=== PATIENT | male | born 1975 | race Caucasian/White ===

== ENCOUNTER 2020-12-04 01:16 | Emergency (ER) | payer OTHER ==
[2020-12-04 01:37] VITALS: TEMP 98.5; BMI 41.8
[2020-12-04] MEDS ORDERED: SODIUM CHLORIDE FOR INHALATION 3 ML VIAL.NEB IH ONE (04:56)
[2020-12-04] MEDS: ALBUTEROL SO4 2.5/IPRATROPIUM 0.5 INH SOL 3 ML VIAL.NEB. NEB SCH ×3 (05:10→05:28)
[2020-12-04 05:56] VITALS: BP 140/79; PULSE 76
== END 2020-12-04 05:52 | disposition home or self-care (01) ==
LOC: JER 01:16
PROC: 3E0F7GC Introduction of Other Therapeutic Substance into Respiratory Tract, Via Natural or Artificial Opening (ICD-10-PCS; principal; 2020-12-04)
DX: T59.891A Toxic effect of other specified gases, fumes and vapors, accidental (unintentional), initial encounter (principal)
CPT/HCPCS: 71046-TC-FY; 93005; 93010; 99284-25

== ENCOUNTER 2021-04-30 18:39 | Observation (INO) | payer OTHER ==
[2021-04-30 20:24] LABS: BASO % 0.5 % (0-2.0); EOS % 0.7 % (0-4.5); HEMATOCRIT 38.5 % (35.4-49); LYMPH % 21.2 % (8-40); MCH 30.5 pg (25.7-33.7); MCHC 33.8 g/dl (32.0-35.9); MEAN CELL VOLUME 90.2 fl (80-96); MEAN PLT VOLUME 7.6 fl (7.5-11.1); MONO % 7.6 % (3.8-10.2); PLATELET COUNT 230 10^3/uL (134-434); RBC 4.27 M/mm3 (4.00-5.60); RDW 13.6 % (11.9-15.9); WHITE BLOOD COUNT 7.8 K/mm3 (4.0-10.0)
[2021-04-30 20:42] LABS: ALBUMIN 3.6 g/dl (3.4-5.0); CALCIUM 9.3 mg/dL (8.5-10.1)
[2021-04-30 20:43] LABS: BLOOD UREA NITROGEN 27.8 mg/dL (7-18)
[2021-04-30 20:46] LABS: CREATININE 0.9 mg/dL (0.55-1.3)
[2021-04-30 20:47] LABS: BILIRUBIN,TOTAL 0.2 mg/dL (0.2-1); TOT PROT 7.3 g/dl (6.4-8.2)
[2021-04-30] MEDS ORDERED: ASPIRIN 81 MG CHEWABLE TABLETS PO ONE (23:30)
[2021-04-30] MEDS ORDERED: ASPIRIN 81 MG CHEWABLE TABLETS ONE (23:52)
[2021-05-01] MEDS ORDERED: PANTOPRAZOLE 40 MG TABLET PO ONE (01:43)
[2021-05-01 07:40] LABS: BASO % 0.3 % (0-2.0); EOS % 0.6 % (0-4.5); HEMATOCRIT 37.8 % (35.4-49); HEMOGLOBIN 12.7 GM/dL (11.7-16.9); LYMPH % 23.2 % (8-40); MCH 30.7 pg (25.7-33.7); MCHC 33.6 g/dl (32.0-35.9); MEAN CELL VOLUME 91.3 fl (80-96); MEAN PLT VOLUME 7.9 fl (7.5-11.1); MONO % 8.5 % (3.8-10.2); NEUT % 67.4 % (42.8-82.8); PLATELET COUNT 216 10^3/uL (134-434); RBC 4.14 M/mm3 (4.00-5.60); RDW 13.6 % (11.9-15.9); WHITE BLOOD COUNT 6.2 K/mm3 (4.0-10.0)
[2021-05-01 07:57] LABS: CALCIUM 8.7 mg/dL (8.5-10.1)
[2021-05-01 07:58] LABS: BLOOD UREA NITROGEN 24.8 mg/dL (7-18)
[2021-05-01 08:01] LABS: CREATININE 0.9 mg/dL (0.55-1.3); PHOSPHOROUS 4.4 mg/dL (2.5-4.9)
[2021-05-01 08:05] LABS: MAGNESIUM 2.5 mg/dL (1.8-2.4)
[2021-05-01] MEDS ORDERED: ENOXAPARIN NA (PORCINE) 40 MG/0.4 ML DISP.SYRIN SQ ONE (08:30)
[2021-05-01] MEDS ORDERED: PANTOPRAZOLE 40 MG TABLET ONE ×2 (08:30→08:42)
[2021-05-01] MEDS: PANTOPRAZOLE 40 MG TABLET PO SCH (10:28)
[2021-05-01] MEDS: ENOXAPARIN NA (PORCINE) 40 MG/0.4 ML DISP.SYRIN SQ SCH (10:29)
[2021-05-01] MEDS ORDERED: REGADENOSON 0.4 MG/5 ML PRE-FILLED SYRINGE IVPUSH ONE ×3 (10:57→12:30)
[2021-05-01 16:42] LABS: PHENCYCLIDINE,URINE NEGATIVE (NEGATIVE)
[2021-05-01 17:20] LABS: COCAINE, UR NEGATIVE (NEGATIVE); METHADONE, UR NEGATIVE (NEGATIVE); OPIATES, URI NEGATIVE (NEGATIVE); URINE AMPHETAMINES NEGATIVE (NEGATIVE); URINE BARBITURATES NEGATIVE (NEGATIVE)
[2021-05-01 17:57] LABS: URINE BENZODIAZEPINES NEGATIVE (NEGATIVE)
[2021-05-01] MEDS ORDERED: TOPIRAMATE 25 MG TABLET ONE (18:33)
[2021-05-01] MEDS ORDERED: ASPIRIN COATED 81 MG TABLET.EC ONE (18:33)
[2021-05-01] MEDS: ASPIRIN COATED 81 MG TABLET.EC PO SCH (18:41)
[2021-05-01] MEDS: metoPROLOL SUCCINATE 25 MG TAB.SR.24H (FP) PO SCH (18:41)
[2021-05-02 03:08] VITALS: BMI 41.5
[2021-05-02 06:58] LABS: HEMATOCRIT 38.6 % (35.4-49); HEMOGLOBIN 13.5 GM/dL (11.7-16.9); MEAN CELL VOLUME 88.6 fl (80-96); MEAN PLT VOLUME 7.6 fl (7.5-11.1); PLATELET COUNT 243 10^3/uL (134-434); RBC 4.35 M/mm3 (4.00-5.60); RDW 13.3 % (11.9-15.9); WHITE BLOOD COUNT 7.1 K/mm3 (4.0-10.0)
[2021-05-02 07:20] LABS: ALBUMIN 3.5 g/dl (3.4-5.0)
[2021-05-02 07:21] LABS: PHOSPHOROUS 4.8 mg/dL (2.5-4.9)
[2021-05-02 07:23] LABS: BILIRUBIN,TOTAL 0.9 mg/dL (0.2-1); CREATININE 0.9 mg/dL (0.55-1.3)
[2021-05-02 07:25] LABS: MAGNESIUM 2.5 mg/dL (1.8-2.4)
[2021-05-02] MEDS: ENOXAPARIN NA (PORCINE) 40 MG/0.4 ML DISP.SYRIN SQ SCH (09:55)
[2021-05-02] MEDS: ASPIRIN COATED 81 MG TABLET.EC PO SCH (09:56)
[2021-05-02] MEDS: PANTOPRAZOLE 40 MG TABLET PO SCH (09:56)
[2021-05-02] MEDS: metoPROLOL SUCCINATE 25 MG TAB.SR.24H (FP) PO SCH (09:56)
[2021-05-02] MEDS ORDERED: LOSARTAN POTASSIUM 25 MG TABLET PO SCH (10:00)
[2021-05-02] MEDS ORDERED: CLOPIDOGREL BISULFATE 75 MG TABLET (FP) PO SCH (10:00)
[2021-05-02 15:11] VITALS: BP 139/75; PULSE 64; TEMP 98.4
[2021-05-02] MEDS ORDERED: ATORVASTATIN CA 40 MG TABLET (FP) PO SCH (22:00)
== END 2021-05-02 15:21 | disposition home or self-care (01) ==
LOC: JER 18:39 → JERBED 23:43 → J4S 05-01 23:07
PROC: 3E023GC Introduction of Other Therapeutic Substance into Muscle, Percutaneous Approach (ICD-10-PCS; principal; 2021-04-30)
PROC: 3E033GC Introduction of Other Therapeutic Substance into Peripheral Vein, Percutaneous Approach (ICD-10-PCS; 2021-04-30)
DX: I24.8 Other forms of acute ischemic heart disease (principal); K21.9 Gastro-esophageal reflux disease without esophagitis; E66.01 Morbid (severe) obesity due to excess calories; Z68.41 Body mass index [BMI] 40.0-44.9, adult; R79.89 Other specified abnormal findings of blood chemistry; F17.210 Nicotine dependence, cigarettes, uncomplicated; Z29.9 Encounter for prophylactic measures, unspecified; R07.9 Chest pain, unspecified
CPT/HCPCS: 36415; 71046-TC-FY; 78452-TC; 80048; 80053; 80061; 80307; 82550; 82553; 83036; 83735; 84100; 84484; 85025; 85027; 85379; 93005; 93010; 93017; 93306-TC; 93970-TC; 96372; 96374; 99285-25; A9502; C9803; G0378; J2785; U0003; U0005